=== PATIENT | female | born 1970 | race Caucasian/White ===

== ENCOUNTER → 2019-08-06 | Outpatient (CLI) | payer BC | LOC: AMSURD 10:15 | DX: I49.3 Ventricular premature depolarization (principal) ==

== ENCOUNTER → 2020-02-10 | Outpatient (CLI) | payer BC ==
[2020-02-10 13:05] VITALS: BP 129/87
== END ==
LOC: AMSURD 12:03
DX: I49.3 Ventricular premature depolarization (principal)